=== PATIENT | female | born 1965 | race Two or more races ===

== ENCOUNTER → 2024-04-28 | Outpatient (CLI) | payer MEDICAID, SELFPAY ==
--- NOTE | 2024-04-28 13:45 | XR_ITS ---
Examination: Diagnostic digital mammography, unilateral, left Computer aided detection 3-D breast Tomosynthesis, unilateral Date and time of exam: April 28, 2024 1354 hours INDICATIONS: Mammogram January 03, 2024 4 mm asymmetry outer left breast 6.2 cm from the nipple Technique: Nonmagnified MLO, CC views of the left breast have been obtained, reconstructed from 3-D Tomosynthesis images. R2 computer aided detection program utilized for evaluation of suspicious masses and/or abnormal calcifications. 3-D Tomosynthesis images obtained. Findings: Scattered areas of fibroglandular density Left breast sonogram today does not demonstrate suspicious mass Spot compression films today also do not demonstrate suspicious mass Impression: BI-RADS category 2: Benign findings Return to yearly follow-up mammography
== END | disposition home or self-care (01) ==
PROVIDERS: PCP Physician Assistant; Referring Provider Physician Assistant; Visit Provider Physician Assistant
DX: R92.322 Mammographic fibroglandular density, left breast (principal); N64.89 Other specified disorders of breast
CPT/HCPCS: 77061; 77065; G0279